=== PATIENT | female | born 1985 | race African-American/Black ===

== ENCOUNTER 2017-10-26 05:44 | Day surgery (SDC) | payer OTHER ==
[2017-10-22 12:29] VITALS: BMI 34.4
[2017-10-26] MEDS ORDERED: ISOSULFAN BLUE 10 MG/ML VIAL SQ ONE (12:23)
[2017-10-26] MEDS ORDERED: MIDAZOLAM HCL 2 MG/2 ML SINGLE DOSE VIAL ONE (12:54)
[2017-10-26] MEDS ORDERED: METHYLENE BLUE 1% 10 MG/1 ML VIAL IVPUSH ONE (13:00)
--- NOTE | 2017-10-26 13:00 | HP ---
History & Physical Update - History History: No Change - Physical Physical: No Change - Assessment Assessment: No Change - Plan Plan: No Change (Consent signed and witnessed All questions answered)
[2017-10-26] MEDS ORDERED: DESFLURANE GAS 240 ML BOTTLE IH ONE (13:03)
[2017-10-26] MEDS ORDERED: SEVOFLURANE 250 ML BTL ONE (13:03)
[2017-10-26] MEDS ORDERED: IBUPROFEN 600 MG TABLET (FP) PO PRN (13:07)
[2017-10-26] MEDS ORDERED: oxyCODONE HCL 5 MG TABLET PO PRN (13:07)
[2017-10-26] MEDS ORDERED: IBUPROFEN 800 MG/8 ML IJ IVPB PRN (13:07)
[2017-10-26] MEDS ORDERED: ONDANSETRON 4 MG/2 ML VIAL IVPUSH PRN (13:07)
--- NOTE | 2017-10-26 13:07 | OP ---
Operative Note - Note: Operative Date: 10/26/17 Pre-Operative Diagnosis: 32yo P0 with Endometrial fibroid, Dysmenorrhea, ovarian cyst, desiring fertility Operation: Hysteroscopy, Myomectomy, Laparoscopy, Ovarian Cystectomy, Chromopertubation, D&C Findings: 1. Submucosal 1.5cm fibroid 2. Stage 3 Endometriosis - no access to anterior or posterior cul-de-sack 3. Right ovarian Endometrioma - 2cm 4. multiple endometriotic rests Post-Operative Diagnosis: Same as Pre-op (and sever pelvic endometriosis) Surgeon: Jacquelyn Hartman [facility] Registered Nurse: Rodrigo Eagle Anesthesiologist/MACHINE ADJUSTER LEADER CASE TRIM: Shay Raymundo Anesthesia: General Specimens Removed: 1. Submucosal Myoma. 2. Right ovarian cyst wall Estimated Blood Loss (mls): 10 Drains & Tubes with Location: Fluid deficit - 50cc Drains, Volume Out (mls): 400 Fluid Volume Replaced (mls): 1,200 Operative Report Dictated: Yes
[2017-10-26] MEDS ORDERED: ELECTROLYTE-148 SOLN 1,000 ML IV SCH (13:15)
[2017-10-26] MEDS ORDERED: LACTATED RINGERS SOLUTION 1,000 ML IV SCH (13:30)
[2017-10-26] MEDS ORDERED: BUPIVACAINE HCL/PF 0.5% (5MG/ML) 10 ML VIAL ONE (13:36)
[2017-10-26] MEDS ORDERED: DEXAMETHASONE SOD PHOSPHATE 4 MG/1 ML VIAL ONE (13:40)
[2017-10-26] MEDS ORDERED: ceFAZolin SODIUM 1 GM VIAL IVPB ONE (13:40)
[2017-10-26] MEDS ORDERED: NEOSTIGMINE METHYLSULFATE 0.5 MG/ML - 10 ML MDV ONE (14:45)
[2017-10-26] MEDS ORDERED: GLYCOPYRROLATE 0.2 MG/1 ML VIAL ONE (14:45)
[2017-10-26] MEDS ORDERED: KETOROLAC TROMETHAMINE 30 MG/1 ML VIAL ONE (16:22)
[2017-10-26] MEDS ORDERED: KETOROLAC TROMETHAMINE 30 MG/1 ML VIAL IVPUSH ONE (16:25)
[2017-10-26 17:34] VITALS: TEMP 98.5
[2017-10-26] MEDS ORDERED: oxyCODONE HCL 5 MG TABLET ONE (18:12)
[2017-10-26] MEDS ORDERED: oxyCODONE HCL 5 MG TABLET PO ONE (18:15)
[2017-10-26 19:42] VITALS: BP 123/71; PULSE 77
--- NOTE | 2017-10-29 13:46 | PATH ---
Surgical Pathology Report Patient Name: MAAME HERRERA [facility]. Rec. #: [id number] /Age/Gender: 1985 (Age: 32) / F Account: [id number] Location: [facility] SURGICAL Taken: 10/26/2017 Received: 10/27/2017 Reported: 10/29/2017 Physicians: Jacquelyn Hartman M.D. Specimen(s) Received A: FIBROID B: RIGHT OVARIAN CYST WALL Clinical History Fibroid uterus, right ovarian cyst Final Diagnosis A. Uterus, "fibroid", dilation and curettage: Fragments of endometrial polyp and benign endocervical tissue. B. Ovarian cyst wall, right, cystectomy: Fragments of cyst WALL with areas of OLD hemorrhage, endometrial GLANDS and stroma consistent with endometriosis. Comment: Part B, Immunohistochemical stains performed at [place], [place] ([id number]) and interpreted at [facility] show endometrial stroma is positive for CD10, supporting the above diagnosis. Electronically Signed Michelle Murguia M.D. Gross Description A. Received in formalin labeled "fibroid," is a 1 g, 2.4 x 2.0 x 0.2 cm aggregate of ramos soft tissue fragments. The specimen is entirely submitted in one cassette. B. Received in formalin labeled "right ovarian cyst wall," is a 2.8 x 2.4 x 0.3 cm aggregate of multiple ramos-brown, irregular to fragmented portions of tissue, possibly consistent with a disrupted cyst. The specimen is entirely submitted in 2 cassettes. 10/27/2017 [facility]10/27/2017
--- NOTE | 2017-11-01 10:23 | OP ---
DATE OF OPERATION: 10/26/2017 PREOPERATIVE DIAGNOSIS: A 33-year-old para 0 with endometrial submucosal fibroids, dysmenorrhea, ovarian cyst, desiring fertility. OPERATION: Hysteroscopy, myomectomy, laparoscopy, ovarian cystectomy, chromopertubation, dilation and curettage. FINDINGS: 1. Submucosal 1.5-cm fibroid on the wide stalk. 2. Stage 3 endometriosis. No ascites. No access to anterior or posterior cul-de-sac. 3. Right ovarian endometrioma, 2 cm. 4. Multiple endometriotic crests noted. POSTOPERATIVE DIAGNOSIS: 1. Submucosal 1.5-cm fibroid on the wide stalk. 2. Stage 3 endometriosis. No ascites. No access to anterior or posterior cul-de-sac. 3. Right ovarian endometrioma, 2 cm. 4. Multiple endometriotic crests noted. 5. Severe pelvic endometriosis. SURGEON: Yulissa Hartman MD COREMAKER: Rodrigo Eagle MD ANESTHESIOLOGIST: Shay Raymundo CRNA ANESTHESIA: General. SPECIMENS REMOVED: 1. Submucosal myoma. 2. Right ovarian cyst. DESCRIPTION OF OPERATIVE PROCEDURE: After assuring informed consent, the patient was brought to the operating room where she was placed in the dorsal lithotomy position. Abdomen, perineum, and vagina were prepped and draped in the sterile fashion. The 5-mm hysteroscope was assembled, weight balanced, and primed. After dilating the cervix to accommodate the 5-mm hysteroscope, after placing a single-toothed tenaculum on the anterior cervical lip, the hysteroscope was introduced into the uterus. Excellent visualization was achieved. Left wall submucosal fibroid of a polypoid nature was discovered and was resected with Foard device in one minute. Excellent hemostasis was obtained. Excellent visualization and the products of resection were suctioned by Foard device. Subsequently, all instruments and sponges were removed from the vagina and cervix. A uterine manipulator was placed into the cervical canal. Wells catheter was placed sterilely, and attention was brought to the abdominal cavity. The umbilical 5-mm incision was made with a scalpel. Veress needle was introduced atraumatically. Proper placement was assessed with drop test with normal saline. The gas was used to insufflate the abdomen. The starting abdominal pressure was 4 mmHg, assuring that the Veress needle was placed correctly. Abdomen was insufflated and subsequently 2 more 5-mm ports were placed in each lower abdominal segment; right lower quadrant and left lower quadrant. The pelvis was found to be frozen without any access to anterior or posterior cul-de-sac. Upper abdomen was clear of any adhesions. Multiple endometriotic crests were noted on the bowel, uterus, bladder, multiple regions. The right-sided cyst was identified, ruptured, and ovarian cyst wall was resected with LigaSure device and sent for pathology. Abdomen was copiously irrigated. Excellent hemostasis was achieved. Gas was removed from the abdomen. Trocars were removed under direct visualization. Skin was repaired with 4-0 Biosyn. Patient tolerated the procedure well. All instrument and sponges were removed from the abdomen as well. The patient was brought to the recovery room in stable condition. YULISSA HARTMAN M.D. [id number]
== END 2017-10-26 19:30 | disposition home or self-care (01) ==
LOC: JASU-SURG 05:44
PROVIDERS: ATTEND Obstetrics & Gynecology
PROC: 0UB98ZZ Excision of Uterus, Via Natural or Artificial Opening Endoscopic (ICD-10-PCS; principal; 2017-10-26 11:30)
PROC: 0UB04ZZ Excision of Right Ovary, Percutaneous Endoscopic Approach (ICD-10-PCS; 2017-10-26 11:30)
DX: D25.0 Submucous leiomyoma of uterus (principal); N80.3 Endometriosis of pelvic peritoneum; N80.0 Endometriosis of uterus; N80.1 Endometriosis of ovary
CPT/HCPCS: 84703; 88304-TC; 88305-TC; 94760

== ENCOUNTER 2018-10-29 00:30 | Inpatient (IN) | payer OTHER ==
[2018-10-29] MEDS ORDERED: AMPICILLIN SODIUM 2 GM VIAL ONE (01:09)
[2018-10-29] MEDS ORDERED: OXYTOCIN 20 UNITS in 0.9% NS 20 UNIT/1,000 ML INFUS.BAG IV ONE ×3 (01:10→11:57)
[2018-10-29] MEDS ORDERED: LIDOCAINE HCL 1% PRESERVATIVE FREE - 30ML VIAL ONE (01:10)
[2018-10-29] MEDS ORDERED: CARBOPROST TROMETHAMINE 250 MCG/ML AMPUL IM ONE (01:45)
--- NOTE | 2018-10-29 01:58 | HP ---
Past Medical History - Primary Care Physician PCP:: Jacquelyn Hartman - Admission Chief Complaint: 33yo P0 @ 36.3 wks with leackage of clear fluid since 10pm and cramping, no VB, pos FM History of Present Illness: 1. IUI 2. Stage 3/4 Endometriosis 3. Uterine fibroids x 2 4. Obese - BMI 35 - Early GCT neg 5. GBS UTI for Abx in labor 6. 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: Yes: Migraine Reproductive: Yes: Endometriosis, Fibroids, Other (h/o Trychomonal h/o abn PAP) ...: 1 ...EDC by Dates: 11/23/18 Endocrine: Yes: Other (obesity) - Past Surgical History Hx Myomectomy: No Hx Transabdominal Cerclage: No Additional Surgical History: 10/26/17 - Laparoscopic removal of Endometrioma, Hysteroscopic myomectomy - Smoking History Smoking history: Never smoked - Alcohol/Substance Use Hx Alcohol Use: Yes (rarely) History of Substance Use: reports: None - Social History Usual Living Arrangement: Yes: With Significant Other History of Recent Travel: No Home Medications - Allergies Allergies/Adverse Reactions: Allergies Allergy/AdvReac Type Severity Reaction Status Date / Time guaifenesin AdvReac Intermediate Verified 10/29/18 10:46 - Home Medications Home Medications: Ambulatory Orders Vitamins (Sjr) - 1 tab PO DAILY 09/18/18 Family Disease History - Family Disease History Family Disease History: Diabetes: Grandparent, Heart Disease: Father, Mother Review of Systems - Review of Systems Constitutional: reports: Other (labor pains) Eyes: reports: No Symptoms HENT: reports: No Symptoms Neck: reports: No Symptoms Cardiovascular: reports: No Symptoms Respiratory: reports: No Symptoms Gastrointestinal: reports: No Symptoms Genitourinary: reports: No Symptoms Breasts: reports: No Symptoms Reported Musculoskeletal: reports: No Symptoms Integumentary: reports: No Symptoms Neurological: reports: No Symptoms Endocrine: reports: No Symptoms Hematology/Lymphatic: reports: No Symptoms Psychiatric: reports: No Symptoms Pain Intensity: 8 Physical Exam - Maternity Constitutional: Yes: Well Nourished, No Distress, Calm, Obese Eyes: Yes: WNL HENT: Yes: WNL, Atraumatic, Normocephalic Neck: Yes: WNL, Supple, Trachea Midline Cardiovascular: Yes: WNL, Regular Rate and Rhythm Lungs: Clear to auscultation Breast(s): Yes: WNL - Abdominal Exam/OB Fundal Height: 37 (EFW 6lb) Number of Fetuses: Single Presentation: Vertex Contractions: Yes Regularity: Regular Intensity: Mod/Strong Monitor Mode: External Heart Rate (range): 150's Heart Rate Location: Midline Category: I Accelerations: Uniform Decelerations: None - Vaginal Exam/OB Vaginal Bleediing: No Dilatation (cm): FD Effacement (%): 100 Amniotic Membrane Status: Ruptured Nitrazine Test: Positive Amniotic Fluid: Yes: Clear Presentation: Vertex/Position Station: -2 - Physical Exam Musculoskeletal: Yes: WNL Extremities: Yes: WNL Edema: No Integumentary: Yes: WNL Deep Tendon Reflex Grade: Normal +2 ...Motor Strength: WNL Psychiatric: Yes: WNL, Alert, Oriented Assessment/Plan 33yo P0 @ 36.3 wks with PPROM, in PTL Fully dilated MF status reassuring Ampicillin for GBS prophylaxis start 2nd stage of labor Neonatology informed
[2018-10-29] MEDS ORDERED: WITCH HAZEL 50% (TUCKS) 40 PAD/JAR PAD TP PRN (02:00)
[2018-10-29] MEDS ORDERED: D5W-LR W/ 20 UNITS OXYTOCIN 20 UNIT/1,000 ML INFUS.BAG IV SCH (02:00)
[2018-10-29] MEDS ORDERED: BENZOCAINE 20% 57 GM BOTTLE TP PRN (02:00)
[2018-10-29] MEDS ORDERED: BENZOCAINE 28 GM HEMORRHOIDAL OINTMENT TP PRN (02:00)
[2018-10-29] MEDS ORDERED: IBUPROFEN 600 MG TABLET (FP) PO PRN (02:00)
[2018-10-29] MEDS ORDERED: BISACODYL 10 MG SUPP.RECT RC PRN (02:00)
[2018-10-29] MEDS ORDERED: METHYLERGONOVINE MALEATE 0.2 MG/1 ML AMP IM PRN (02:00)
--- NOTE | 2018-10-29 02:00 | PN ---
Delivery - Delivery Vaginal Delivery: No Problems Type of Anesthesia: None Episiotomy/Laceration: None EBL (cc): 300 Delivery, Single - Stages of Labor Date 1st Stage Initiatied: 10/28/18 Time 1st Stage Initiated: 22:30 Date 2nd Stage Initiated: 10/29/18 Time 2nd Stage Initiated: 01:20 Date of Delivery: 10/29/18 Time of Delivery: 01:40 Date Placenta Delivered: 10/29/18 Time Placenta Delivered: 01:48 Placenta: Yes: Spontaneous - Condition of Parking Attendant/Industrial Engineering Technologist Present: No Gender: Female Weight: 6 lb 8 oz Position: Right, OA - 1 Minute Total Score: 9 5 Minutes Total Score: 9 - Feeding Plan Benefits of Exclusively reinforced: Yes Remarks - Remarks Remarks: uncomplicated delivery of head and shoulders
[2018-10-29 02:07] LABS: BASO % 0.3 % (0-2.0); EOS % 0.7 % (0-4.5); HEMATOCRIT 30.3 % (32.4-45.2); HEMOGLOBIN 9.6 GM/dL (10.7-15.3); LYMPH % 23.5 % (8-40); MCH 27.1 pg (25.7-33.7); MCHC 31.6 g/dl (32.0-36.0); MEAN CELL VOLUME 85.8 fl (80-96); MEAN PLT VOLUME 10.3 fl (7.5-11.1); NEUT % 69.5 % (42.8-82.8); PLATELET COUNT 324 K/MM3 (134-434); RBC 3.53 M/mm3 (3.60-5.2); RDW 13.7 % (11.6-15.6); WHITE BLOOD COUNT 11.7 K/mm3 (4.0-10.0)
[2018-10-29 02:21] LABS: INR 0.98 (0.83-1.09); PROTHROMBIN TIME (PATIENT) 11.6 SEC (9.7-13.0)
[2018-10-29 02:23] LABS: ACTIVATED PTT 28.7 SECONDS (25.2-36.5)
[2018-10-29 02:32] LABS: ALBUMIN 2.7 g/dl (3.4-5.0); BILIRUBIN,TOTAL 0.3 mg/dL (0.2-1); BLOOD UREA NITROGEN 9.7 mg/dL (7-18); CALCIUM 8.9 mg/dL (8.5-10.1); CREATININE 0.7 mg/dL (0.55-1.3); POTASSIUM 3.8 mmol/L (3.5-5.1); TOT PROT 6.7 g/dl (6.4-8.2)
[2018-10-29 03:09] VITALS: BMI 35.9
[2018-10-29] MEDS ORDERED: ONDANSETRON 4 MG/2 ML VIAL IVPB ONE (03:30)
[2018-10-29] MEDS ORDERED: ONDANSETRON 4 MG/2 ML VIAL IVPUSH ONE (03:30)
[2018-10-29] MEDS ORDERED: KETOROLAC TROMETHAMINE 60 MG/2 ML VIAL IM ONE (03:30)
[2018-10-29] MEDS ORDERED: KETOROLAC TROMETHAMINE 60 MG/2 ML VIAL ONE (03:41)
[2018-10-29] MEDS ORDERED: ONDANSETRON 4 MG/2 ML VIAL ONE (03:42)
[2018-10-29] MEDS ORDERED: IBUPROFEN 100 MG/5 ML UNIT DOSE CUPS PO PRN (03:50)
[2018-10-29 03:53] LABS: VENOUS PC02 48.4 mmHg (41-51); VENOUS PH 7.3 (7.31-7.41)
[2018-10-29 03:57] LABS: ARTERIAL BLD GAS O2 SATURATION 76.9 % (95-98); ARTERIAL BLOOD GAS BASE EXCESS -4.2 meq/l (-2-2); ARTERIAL BLOOD GAS PCO2 51.2 mmHg (35-45); ARTERIAL BLOOD GAS pH 7.27 (7.35-7.45)
[2018-10-29] MEDS: ACETAMINOPHEN 325 MG TABLET (FP) PO PRN ×4 (06:00→21:11)
[2018-10-29] MEDS ORDERED: ONDANSETRON 4 MG/2 ML VIAL IVPUSH PRN (07:49)
[2018-10-29 09:02] LABS: RPR NONREACTIVE (NONREACTIVE)
[2018-10-29] MEDS: PRENATAL VITAMINS W/ FOLIC ACID TABLET (FP) PO SCH (10:31)
[2018-10-29] MEDS: IBUPROFEN 600 MG TABLET (FP) PO PRN ×3 (10:31→21:11)
[2018-10-29] MEDS: FERROUS SO4 325 MG TABLET (FP) PO SCH ×2 (10:31→21:05)
[2018-10-29] MEDS ORDERED: IBUPROFEN 600 MG TABLET (FP) PO ONE (15:55)
[2018-10-29] MEDS ORDERED: ACETAMINOPHEN 325 MG TABLET (FP) ONE (15:55)
[2018-10-30] MEDS: IBUPROFEN 600 MG TABLET (FP) PO PRN ×5 (01:29→22:58)
[2018-10-30] MEDS: ACETAMINOPHEN 325 MG TABLET (FP) PO PRN ×5 (01:30→22:59)
--- NOTE | 2018-10-30 07:47 | PN ---
Post Progress Note - Subjective Subjective: Patient without acute complaints. Reports tolerating oral intake without nausea or vomiting. Ambulating without dizziness. Denies fevers or chills. Pain well controlled with oral pain medication. without difficulty. Passing flatus. Post Day: 1 Type of Delivery: Vital Signs: Vital Signs Temperature 97.6 F 10/30/18 01:52 Pulse Rate 78 10/30/18 01:52 Respiratory Rate 18 10/30/18 01:52 Blood Pressure 113/64 10/30/18 01:52 O2 Sat by Pulse Oximetry (%) 98 10/29/18 02:45 Breast Exam: Yes: Soft Uterus: Yes: Fundus Firm Abdomen/GI: Yes: Abdomen soft, Passing flatus, Tolerating PO Lochia: Yes: Rubra Lochia, amount: Small Extremities: Yes: Calves non-tender Perineum: Yes: Intact Activity: Ambulating - Labs Labs: CBC WBC 11.7 K/mm3 (4.0-10.0) H 10/29/18 01:45 RBC 3.53 M/mm3 (3.60-5.2) L 10/29/18 01:45 Hgb 9.6 GM/dL (10.7-15.3) L 10/29/18 01:45 Hct 30.3 % (32.4-45.2) L 10/29/18 01:45 MCV 85.8 fl (80-96) 10/29/18 01:45 MCH 27.1 pg (25.7-33.7) 10/29/18 01:45 MCHC 31.6 g/dl (32.0-36.0) L 10/29/18 01:45 RDW 13.7 % (11.6-15.6) 10/29/18 01:45 Plt Count 324 K/MM3 (134-434) 10/29/18 01:45 MPV 10.3 fl (7.5-11.1) D 10/29/18 01:45 Absolute Neuts (auto) 8.1 K/mm3 (1.5-8.0) H 10/29/18 01:45 Neutrophils % 69.5 % (42.8-82.8) 10/29/18 01:45 Lymphocytes % 23.5 % (8-40) 10/29/18 01:45 Monocytes % 6.0 % (3.8-10.2) 10/29/18 01:45 Eosinophils % 0.7 % (0-4.5) 10/29/18 01:45 Basophils % 0.3 % (0-2.0) 10/29/18 01:45 Nucleated RBC % 0 % (0-0) 10/29/18 01:45 Assessment/Plan 33yo P1 s/p VSS, afebrile Doing well H/H wnl Encourage routine care, ambulation Plan to D/C in am
[2018-10-30] MEDS: FERROUS SO4 325 MG TABLET (FP) PO SCH ×2 (09:16→22:58)
[2018-10-30] MEDS: PRENATAL VITAMINS W/ FOLIC ACID TABLET (FP) PO SCH (09:16)
[2018-10-30 09:30] LABS: BASO % 0.6 % (0-2.0); EOS % 1.3 % (0-4.5); HEMATOCRIT 26.1 % (32.4-45.2); HEMOGLOBIN 8.4 GM/dL (10.7-15.3); LYMPH % 29.7 % (8-40); MCH 27.7 pg (25.7-33.7); MCHC 32.3 g/dl (32.0-36.0); MEAN CELL VOLUME 85.8 fl (80-96); MEAN PLT VOLUME 9.5 fl (7.5-11.1); MONO % 5.6 % (3.8-10.2); NEUT % 62.8 % (42.8-82.8); PLATELET COUNT 325 K/MM3 (134-434); RBC 3.04 M/mm3 (3.60-5.2); RDW 13.9 % (11.6-15.6); WHITE BLOOD COUNT 10.3 K/mm3 (4.0-10.0)
[2018-10-30] MEDS ORDERED: SENNOSIDES/DOCUSATE COMBO (SENNA PLUS) TABLET (UD) PO PRN (22:00)
[2018-10-31] MEDS: ACETAMINOPHEN 325 MG TABLET (FP) PO PRN ×3 (08:15→19:00)
[2018-10-31] MEDS: IBUPROFEN 600 MG TABLET (FP) PO PRN ×3 (08:16→19:00)
[2018-10-31] MEDS: PRENATAL VITAMINS W/ FOLIC ACID TABLET (FP) PO SCH (09:54)
[2018-10-31] MEDS: FERROUS SO4 325 MG TABLET (FP) PO SCH (09:54)
[2018-10-31 10:58] VITALS: BP 115/72; PULSE 83; TEMP 98.1
--- NOTE | 2018-10-31 14:13 | DS ---
Physical Exam-DISABILITY SERVICES COORDINATOR Vital Signs: Vital Signs Temperature 98.1 F 10/31/18 09:00 Pulse Rate 83 10/31/18 09:00 Respiratory Rate 20 10/31/18 09:00 Blood Pressure 115/72 10/31/18 09:00 O2 Sat by Pulse Oximetry (%) 98 10/29/18 02:45 Constitutional: Yes: Well Nourished, No Distress, Calm Eyes: Yes: WNL HENT: Yes: WNL, Atraumatic, Normocephalic Neck: Yes: WNL, Supple, Trachea Midline Cardiovascular: Yes: WNL, Regular Rate and Rhythm Respiratory: Yes: WNL, Regular, CTA Bilaterally Gastrointestinal: Yes: WNL, Normal Bowel Sounds, Soft ...Rectal Exam: Yes: WNL Renal/: Yes: WNL Pelvis: Yes: WNL External Genitalia: Yes: Normal Internal Exam Deferred: No Vaginal Exam: Yes: Normal ....Post : Yes: Uterus firm, Uterus non-tender Breast(s): Yes: WNL Musculoskeletal: Yes: WNL Extremities: Yes: WNL Edema: No Integumentary: Yes: WNL Neurological: Yes: WNL, Alert, Oriented ...Motor Strength: WNL Psychiatric: Yes: WNL, Alert, Oriented Labs: CBC, BMP 10/30/18 08:59 10/29/18 01:45 Delivery - Delivery Vaginal Delivery: No Problems Type of Anesthesia: None Episiotomy/Laceration: None EBL (cc): 300 Delivery, Single - Stages of Labor Date 1st Stage Initiatied: 10/28/18 Time 1st Stage Initiated: 22:30 Date 2nd Stage Initiated: 10/29/18 Time 2nd Stage Initiated: 01:20 Date of Delivery: 10/29/18 Time of Delivery: 01:40 Date Placenta Delivered: 10/29/18 Time Placenta Delivered: 01:48 Placenta: Yes: Spontaneous - Condition of Infant Strip Mill Operator/Vocational Nursing Instructor Present: No Gender: Female Weight: 6 lb 8 oz Position: Right, OA Total Hours ROM (Hrs/Mins): 4h8m - 1 Minute Total Score: 9 5 Minutes Total Score: 9 - [place] Feeding Plan Initial Plan: Exclusive throughout hospitalization Benefits of Exclusively reinforced: Yes Discharge Summary Reason For Visit: ADMIT Procedures: Principal: labor Other Procedures: Labor and delivery Hospital Course: Unremarkable Condition: Good - Instructions Diet, Activity, Other Instructions: CALL OFFICE FOR 4-6 WEEK FOLLOW UP APPOINTMENT. Physical activity Resume your normal everyday activity as tolerated no heavy lifting or exercise until seen by your surgeon. You may walk unlimited martha of and climb stairs. You may resume driving the car when you feel safe and comfortable behind the wheel. No sexual activity as instructed. Wound care If you have a bandage, leave it on, and keep dry for 48-72 hours. After that time discard the outer bandage. If they are tapes on the skin under the out of bandage leave them in place. They will peel off in the next 7 to 10 days. Do Not Peel them off. You may shower the day after surgery. If there are tapes present on the skin, you may shower over them. Diet There are no dietary restrictions. Eat healthy, high-fiber foods. Drink 6 to 8 glasses of liquid each day. This will assist in keeping your bowels are regular. Pain management You may take Tylenol or acetaminophen or Ibuprofen (for example, Motrin, Advil etc.) from my pain prescription medication is ordered should be taken as prescribed for moderate to severe pain. Call MD for any of the following: Severe pain not relieved by medication Fever of 101 or higher Excessive bleeding or drainage on dressing Inability to urinate Referrals: Jacquelyn Hartman MD [Staff Physician] - Disposition: HOME - Home Medications Comprehensive Discharge Medication List: Ambulatory Orders Vitamins (Sjr) - 1 tab PO DAILY 09/18/18
== END 2018-10-31 20:29 | disposition home or self-care (01) | DRG 807 ==
LOC: JLDR 00:30 → J3W 16:12
PROVIDERS: ADMIT Obstetrics & Gynecology; ATTEND Obstetrics & Gynecology
PROC: 10E0XZZ Delivery of Products of Conception, External Approach (ICD-10-PCS; principal; 2018-10-29)
DX: O42.013 Preterm premature rupture of membranes, onset of labor within 24 hours of rupture, third trimester (principal); Z37.0 Single live birth; O99.824 Streptococcus B carrier state complicating childbirth; O34.13 Maternal care for benign tumor of corpus uteri, third trimester; D25.9 Leiomyoma of uterus, unspecified; O99.214 Obesity complicating childbirth; E66.9 Obesity, unspecified; Z3A.36 36 weeks gestation of pregnancy
CPT/HCPCS: 36415; 36600; 59409; 80053; 82803; 85025; 85610; 85730; 86593; 86762; 86850; 86900; 86901; 87340; 87389